=== PATIENT | male | born 1965 | race African-American/Black ===

== ENCOUNTER 2024-10-04 17:15 | Emergency (ER) | payer BC ==
[2024-10-04 19:06] LABS: INR-International Normal Ratio 1.1; Prothrombin Time 13.9 sec (12.0-14.7)
[2024-10-04 19:12] LABS: #Basophils 0.2 thou/uL (0.0-0.2); #Eosinophils 0.2 thou/uL (0.0-0.7); #Lymphocytes 2.3 thou/uL (1.20-3.40); #Monocytes 0.9 thou/uL (0.11-0.59); #Neutrophils 7.4 thou/uL (1.40-6.50); %Basophils 1.4 % (0.0-1.0); %Eosinophils 1.9 % (0.0-10.0); %Lymphocytes 20.8 % (21.0-51.0); %Monocytes 8.6 % (0.0-10.0); %Neutrophils 67.3 % (42.0-75.0); Critical Call w/ Read Back NUR.AC25@1913; Hematocrit 21.4 % (42.0-52.0); Hemoglobin 5.9 g/dL (14.0-18.0); Mean Corpuscular HGB CONC 27.8 g/dL (32.0-36.0); Mean Corpuscular Hemoglobin 17.2 pg (27.0-31.0); Mean Platelet Volume 6.5 fL (7.4-10.4); Platelet Count 545 10x3/uL (130-400); Red Blood Cell (RBC) Count 3.45 mill/uL (4.70-6.10)
[2024-10-04 19:15] LABS: ALT (SGPT) 14 U/L (8-55); AST (SGOT) 17 U/L (5-34); Albumin 3.6 g/dL (3.5-5.0); Alkaline Phosphatase 63 U/L (40-110); Anion Gap 12 mmol/L (10-20); BUN (Urea Nitrogen) 22 mg/dL (8.4-25.7); Bilirubin, Total 0.2 mg/dL (0.2-1.2); Calc. Creatinine Clearance 0 mL/min (70-130); Calcium 9.3 mg/dL (7.8-10.44); Carbon Dioxide 22 mmol/L (22-29); Chloride 106 mmol/L (98-107); Estimated GFR 63; Globulin 4.1 g/dL (2.4-3.5); Glucose 146 mg/dL (70-105); Potassium 3.9 mmol/L (3.5-5.1); Protein, Total 7.7 g/dL (6.0-8.3); Sodium 136 mmol/L (136-145)
[2024-10-04] MEDS ORDERED: Sodium Chloride 0.9% 100 ML ONE (21:15)
[2024-10-04 21:33] LABS: Anisocytosis SLIGHT = 6-15 cells (100X) (0-5/hpf); Hypochromia SLIGHT = 6-15 cells (100X) (0-5/hpf); Microcytosis SLIGHT = 6-15 cells (100X) (0-5/hpf); Poikilocytosis SLIGHT = 6-15 cells (100X) (0-5/hpf); Target Cells SLIGHT = 2-5 cells (100X) (0-1/hpf)
[2024-10-04 21:34] LABS: Burr Cells SLIGHT = 2-5 cells (100X) (0-1/hpf); Schistocytes SLIGHT = 2-5 cells (100X) (0-1/hpf); Tear Drops SLIGHT = 2-5 cells (100X) (0-1/hpf)
[2024-10-04 21:35] LABS: Platelet Adequacy Comment Appears Increased
[2024-10-04] MEDS ORDERED: traMADol HCl 50 MG TAB ONE (22:24)
== END 2024-10-05 03:39 | disposition home or self-care (01) ==
LOC: NAV ERS 17:15
DX: D50.0 Iron deficiency anemia secondary to blood loss (chronic) (principal); E11.9 Type 2 diabetes mellitus without complications; K21.9 Gastro-esophageal reflux disease without esophagitis; Z79.899 Other long term (current) drug therapy; Z79.84 Long term (current) use of oral hypoglycemic drugs
CPT/HCPCS: 36415; 36430; 80053; 85025; 85610; 86850; 86900; 86901; 99284; P9016